=== PATIENT | female | born 1955 | race Caucasian/White ===

== ENCOUNTER 2017-10-24 15:37 | Emergency (ER) | payer BC ==
[~2017-10-24] VITALS: Ht 167.6 cm; Wt 81.8 kg
[2017-10-24 15:53] VITALS: BP 164/69; TEMP 98.1
[2017-10-24] MEDS ORDERED: IMITREX100 MG PO (16:09)
[2017-10-24] MEDS ORDERED: PERIACTIN 4MG TA4 MG PO (16:10)
[2017-10-24] MEDS ORDERED: TYLENOL 500MG500 MG PO (16:11)
[2017-10-24 16:49] VITALS: PULSE 88
== END 2017-10-24 16:50 | disposition home or self-care (01) ==
LOC: COL.ER 15:37
DX: M79.661 Pain in right lower leg (principal); G43.909 Migraine, unspecified, not intractable, without status migrainosus; Z90.710 Acquired absence of both cervix and uterus